=== PATIENT | female | born 1995 | race Caucasian/White ===

== ENCOUNTER → 2017-09-07 | Outpatient (CLI) | payer BC | LOC: FIMAGING 08:05 | PROVIDERS: ATTEND Obstetrics & Gynecology | DX: N93.9 Abnormal uterine and vaginal bleeding, unspecified (principal) ==

== ENCOUNTER 2017-10-31 13:11 | Emergency (ER) | payer BC ==
--- NOTE | 2017-10-31 14:24 | EDPHY ---
H & P Time Seen by Provider: 10/31/17 14:14 HPI/ROS: CHIEF COMPLAINT: Right hand pain post foosh HISTORY OF PRESENT ILLNESS: 21-year-old [id number] female sustained a mechanical fall yesterday, fell impacting her right 4th and 5th metacarpal. Complaining of pain to her 4th and 5th metacarpal. Ecchymosis as well. No paresthesia. No sensory or motor deficit. Reproducible pain with palpation. PHYSICAL EXAM (Prior to examination, patient consented to physical exam, hands were washed and my usual and customary physical exam procedures followed) 1) GENERAL: Well-developed, well-nourished, alert and oriented. Appears to be in no acute distress. 2) HEAD: Normocephalic 3) HEENT: Pupils equal, round, reactive to light bilaterally. 4) LUNGS: Breathing comfortably. 5) MUSCULOSKELETAL: Ecchymosis to the palmar aspect 4th and 5th metacarpal. Tenderness at same location. Soft compartments. Normal coloration. Normal cascading of digits 6) SKIN: Intact. 7) VASCULAR: pulses and cap refill present are brisk 8) NEUROLOGIC: Radial, ulnar, median nerve function intact with no deficits appreciated on exam DIFFERENTIAL DIAGNOSIS: in no particular order including but not limited to fracture, sprain, compartment syndrome Procedure: Splint A Velcro volar splint splint was applied by ER alarm service technician. After application of the splint I returned and re-examined the patient. The splint was adequately immobilizing the joint and distal to the splint the patient's circulation and sensation were intact. Patient shows no signs of compartment syndrome. Was given orthopedic precautions. Smoking Status: Never smoked Constitutional: Initial Vital Signs Temperature (C) 36.5 C 10/31/17 13:47 Heart Rate 76 10/31/17 13:47 Respiratory Rate 18 10/31/17 13:47 Blood Pressure 125/89 H 10/31/17 13:47 O2 Sat (%) 96 10/31/17 13:47 O2 Delivery Mode Room Air Allergies/Adverse Reactions: No Known Allergies Allergy (Unverified 10/31/17 13:46) Home Medications: Medication Instructions Recorded Lexapro 10/31/17 Pardeep 28 Day Tablet 10/31/17 MDM/Departure - [facility] Imaging: I viewed and interpreted images myself ED Course/Re-evaluation: No definitive fracture seen on x-ray. Plan will be splinting, elevation, follow up with Hand surgery. Usual and customary orthopedic precautions instructions provided. Care of patient under supervision of secondary supervising physician Dr Chadwick. - Depart Disposition: Home, Routine, Self-Care Clinical Impression: Right hand pain Condition: Good Instructions: Hand Sprain (ED) Additional Instructions: Return to the ER immediately if you experience discoloration, have worsening pain, numbness, tingling, or any other symptoms that concern you. If you received x-rays in the emergency department today, be advised, that ligamentous , tendon, muscular, and other non-bony injury cannot be fully ruled out. Try to keep your affected extremity elevated above the level of your chest, and keep cold packs on the affected area, for the next 48 hours. Referrals: Moody Ramirez MD [Medical Doctor] - 2-3 days, call for appt.
[2017-10-31 14:36] VITALS: BP 137/91; PULSE 83; RESP 16; TEMP 98.6; O2SAT 97
== END 2017-10-31 14:34 | disposition home or self-care (01) ==
DX: S69.91XA Unspecified injury of right wrist, hand and finger(s), initial encounter (principal); W18.39XA Other fall on same level, initial encounter; Y99.8 Other external cause status

== ENCOUNTER 2017-12-28 20:07 | Emergency (ER) | payer BC ==
[2017-12-28 20:13] VITALS: BP 129/79
--- NOTE | 2017-12-28 20:42 | EDPHY ---
H & P Stated Complaint: painful urination for 5 days now urinating blood and flank pain Time Seen by Provider: 12/28/17 20:41 HPI/ROS: HPI: This is a 21-year-old female who presents with Chief Complaint: painful urination for 5 days Location: Quality: Painful urination Duration: 5 days Signs and Symptoms: no fever, no nausea, no vomiting, no hematemesis, no blood in stool, no abdominal bloating, no diarrhea, no back pain, + burning with urination, + urinary frequency, no vaginal bleeding/discharge, no indigestion, no chest pain, no shortness of breath Timing: Acute, constant Severity: Moderate Context: Patient reports that she has had painful urination for the last 5 days. She reports that she recently graduated from college and started a new job. She has been taking [id number]-[id number] cranberry tablets with moderate relief of her symptoms. She reports that today though she started to note that her urine was darker in color and she had lower back pain. She denies any fever /chills/nausea/vomiting. LMP 2-3 weeks ago. Takes oral control pills. Patient reports that this would be her 5th urinary tract infection this year. Two months ago she was prescribed Keflex and developed a rash. She has a local primary care provider. She is sexually active in urinate after sexual intercourse. She has no prior history of pyelonephritis/kidney stones. She is eating and drinking normally. Modifying Factors: [id number] cranberry tablets Comment: ROS: see HPI Constitutional: No fever, no chills, no weight loss Eyes: No blurred vision Respiratory: No shortness of breath, no cough Cardiovascular: No chest pain, no palpitations Gastrointestinal: No nausea, no vomiting, no diarrhea, no hematemesis, no blood in stool Genitourinary: + dysuria, no blood in urine Extremities: No myalgias, no edema Neurologic: No weakness, no numbness Skin: No rashes, no petechiae Hematologic: No bruising, no bleeding MEDICAL/SURGICAL/SOCIAL HISTORY: Medical history: Depression. Surgical history: Denies Social history: Family history noncontributory. CONSTITUTIONAL: Extremely polite and cooperative nontoxic-appearing young adult white female, awake and alert, no obvious distress HEENT: Atraumatic and normocephalic, PERRL, EOMI. Nares patent; no rhinorrhea; no nasal mucosal edema. Tympanic membranes clear. Oropharynx clear, no exudate and moist pink mucosa. Airway patent. No lymphadenopathy. No meningismus. Cardiovascular: Normal S1/S2, regular rate, regular rhythm, without murmur rub or gallop. PULMONARY/CHEST: Symmetrical and nontender. Clear to auscultation bilaterally. Good air movement. No accessory muscle usage. ABDOMEN: Soft, nondistended, nontender, no rebound, no guarding, no peritoneal signs, no masses or organomegaly. No CVAT. EXTREMITIES: 2/2 pulses, strength 5/5, no deformities, no clubbing, no cyanosis or edema. NEUROLOGICAL: no focal neuro deficits. GCS 15. SKIN: Warm and dry, no erythema. no rash. Good capillary refill. Source: Patient Exam Limitations: No limitations - Personal History LMP (Females 10-55): 22-28 Days Ago Current Tetanus/Diphtheria Vaccine: Yes Current Tetanus Diphtheria and Acellular Pertussis (TDAP): Yes - Medical/Surgical History Hx Asthma: No Hx Chronic Respiratory Disease: No Hx Diabetes: No Hx Cardiac Disease: No Hx Renal Disease: No Hx Cirrhosis: No Hx Alcoholism: No Hx HIV/AIDS: No Hx Splenectomy or Spleen Trauma: No Other PMH: denies - Social History Smoking Status: Never smoked Constitutional: Initial Vital Signs Temperature (C) 36.9 C 12/28/17 20:08 Heart Rate 89 12/28/17 20:08 Respiratory Rate 16 12/28/17 20:08 Blood Pressure 129/79 H 12/28/17 20:08 O2 Sat (%) 98 12/28/17 20:08 O2 Delivery Mode Room Air Allergies/Adverse Reactions: cephalexin Allergy (Verified 12/28/17 20:11) Home Medications: Medication Instructions Recorded Lexapro 10/31/17 Viorele 28 Day Tablet 10/31/17 Ciprofloxacin [Cipro] 500 mg PO BID #14 tab 12/28/17 Medical Decision Making ED Course/Re-evaluation: Vital signs reviewed and stable upon arrival. No systemic signs. Patient has no clinical features of pyelonephritis. She is appropriate to treat outpatient. Urinalysis shows infection; sent for culture; given a prepack for Cipro and prescription for same. She was also given 1 dose of Pyridium prior to discharge. Abdomen is soft and nontender. Doubt surgical process. This patient was seen under the supervision of my secondary supervising physician. I evaluated care for this patient independently. Differential Diagnosis: Differential diagnosis includes but is not limited to lower urinary tract infection, pyelonephritis, sepsis. - Data Points Laboratory Results: 12/28/17 20:12 Urine Color YELLOW Urine Appearance MODERATELY TURBID Urine pH 6.0 (5.0-7.5) Ur Specific [place] 1.011 (1.002-1.030) Urine Protein 2+ H (NEGATIVE) Urine Ketones NEGATIVE (NEGATIVE) Urine Blood 2+ H (NEGATIVE) Urine Nitrate NEGATIVE (NEGATIVE) Urine Bilirubin NEGATIVE (NEGATIVE) Urine Urobilinogen 2.0 EU H EU (0.2-1.0) Ur Leukocyte Esterase 3+ H (NEGATIVE) Urine RBC 25-50 /hpf H /hpf (0-3) Urine WBC 50-182 /hpf H /hpf (0-3) Ur Epithelial Cells TRACE /lpf /lpf (NONE-1+) Urine Bacteria 4+ /hpf H /hpf (NONE SEEN) Urine Mucus 1+ /lpf /lpf (NONE-1+) Urine Glucose NEGATIVE (NEGATIVE) Medications Given: Discontinued Medications Ibuprofen (Motrin) 600 mg PO EDNOW ONE Stop: 12/28/17 20:47 Last Admin: 12/28/17 20:49 Dose: 600 mg Departure - Departure Disposition: Home, Routine, Self-Care Clinical Impression: Lower urinary tract infection, acute Condition: Good Instructions: Urinary Tract Infection in Women (ED) Additional Instructions: Consume a minimum of 8-10 glasses of water or electrolyte fluid replacement drinks that include Gatorade, Powerade, Pedialyte. Take Cranberry tablet or AZO Over the Counter as needed for urinary symptoms. Take Ciprofloxacin twice daily x 7 days. Return to the Emergency Room if symptoms do not resolve in the next 72 hours, you spike a fever > 102 F, or experience intractable abdominal pain/nausea/ vomiting. Referrals: Elizabeth Robins PA [Primary Care Provider] - 3-4 days, if not improved Prescriptions: Ciprofloxacin [Cipro] 500 mg PO BID #14 tab
[2017-12-28] MEDS ORDERED: IBUPROFEN 600 MG TAB PO ONE ×2 (20:44→20:46)
[2017-12-28] MEDS ORDERED: CIPROFLOXACIN 500MG PREPACK#2 BTL TAKEHOME ONE (21:06)
[2017-12-28] MEDS ORDERED: PHENAZOPYRIDINE HCL 200 MG TAB PO ONE (21:07)
== END 2017-12-28 21:24 | disposition home or self-care (01) ==
DX: N39.0 Urinary tract infection, site not specified (principal); B96.20 Unspecified Escherichia coli [E. coli] as the cause of diseases classified elsewhere